=== PATIENT | male | born 1965 | race Caucasian/White ===

== ENCOUNTER 2018-08-03 11:07 | Emergency (ER) | payer MEDICAID, MEDICARE, OTHER ==
[2018-08-03 11:17] VITALS: BP 134/99
--- NOTE | 2018-08-03 11:51 | ED Physician Documentation ---
History of Present Illness - Stated complaint Stated Complaint: COLDS/COUGH - Chief complaint Chief Complaint: Resp - History obtained from History obtained from: Patient - Additonal information Additional information: Patient is a 53-year-old male with history of HIV presenting with nasal congestion, rhinorrhea, sore throat, productive cough, and mild shortness of breath over the past several weeks. Patient reports that he was at a walk-in clinic recently where they tested him for strep, which returned negative. Patient received medication for cough, although no antibiotics. Patient denies other symptoms such as nausea, vomiting, abdominal pain, urinary changes, or stool changes. Patient reports that he follows with the [facility] regarding his HIV status about every 6 months and his last CD4 counts and viral load were normal and otherwise undetectable. No other improving or worsening factors noted. Review of Systems Constitutional: denies: Fever Nose: reports: Rhinorrhea / runny nose, Congestion Throat: reports: Sore throat Respiratory: reports: Dyspnea, Cough GI: denies: Abdominal Pain, Vomiting, Diarrhea : denies: Dysuria PD PAST MEDICAL HISTORY - Past Medical History Past Medical History: Yes Other Past Medical History: HIV - Past Surgical History Past Surgical History: No - Present Medications Home Medications: Ambulatory Orders Medication Instructions Recorded Confirmed Doxycycline Hyclate 100 mg PO BID #14 capsule 08/03/18 - Allergies Allergies/Adverse Reactions: Allergies Allergy/AdvReac Type Severity Reaction Status Date / Time No Known Drug Allergies Allergy Verified 08/03/18 11:15 PD ED PE NORMAL - Vitals Vital signs reviewed: Yes - General General: Alert and oriented X 3, No acute distress, Well developed/nourished - HEENT HEENT: Atraumatic, Moist mucous membranes, Pharynx benign, Other (Maxillary sinus pressure) - Cardiac Cardiac: RRR, No murmur - Respiratory Respiratory: No respiratory distress, Clear bilaterally, Other (Dry cough) - Abdomen Abdomen: Soft, Non tender, Non distended - Derm Derm: Normal color, Warm and dry, No rash - Extremities Extremities: No deformity - Neuro Neuro: Alert and oriented X 3, No motor deficit, No sensory deficit - Psych Psych: Normal mood, Normal affect Results - Vitals Vitals: Vital Signs - 24 hr 08/03/18 11:14 Temperature 36.8 C Heart Rate 81 Respiratory 18 Rate Blood Pressure 134/99 H O2 Saturation 99 Oxygen O2 Source Room air PD MEDICAL DECISION MAKING - ED course Complexity details: reviewed results, re-evaluated patient, considered differential, d/w patient ED course: Most concerning for viral illness, URI, sinusitis, postnasal drip, pneumonia given patient's constellation of symptoms. Patient reports sore throat, but no changes to indicate tonsillitis, pharyngitis, uvulitis, peritonsillar abscess or other concerns on exam. Patient reports recent negative strep test. Patient also has mild pressure and tenderness to maxillary sinuses indicating possible sinusitis. Although pulmonary exam is relatively unremarkable, chest x-ray concerning for possible scarring versus pneumonia given clinical findings, as well as medical history, feel appropriate to treat as pneumonia. Do feel that doxycycline can be prescribed to address both sinusitis and pneumonia, particularly as patient is equivocal to an immunocompetent patient given his normal CD4 counts, per his report. Do not have high suspicion for PCP or other acute complication at this time. Additionally, patient has follow-up with his HIV specialist later this week. Feel he is safe to discharge home with antibiotics, strict return precautions and plan to continue follow-up as scheduled. Patient voiced understanding and is comfortable with discharge plan. Departure - Departure Disposition: 01 Home, Self Care Clinical Impression: Pneumonia Qualifiers: Pneumonia type: due to unspecified organism Laterality: bilateral Lung location: lower lobe of lung Qualified Code(s): J18.1 - Lobar pneumonia, unspecified organism Condition: Good Instructions: ED Pneumonia Adult, ED Sinusitis Abx Tx Follow-Up: Warren Islas MD [Primary Care Provider] - Within 3 Days Prescriptions: Doxycycline Hyclate 100 mg PO BID #14 capsule Comments: Please continue all home medications as previously instructed. Please take antibiotics as provided for likely pneumonia and sinus infection. Recommend taking antibiotics with small amount of food to avoid upset stomach. Please follow-up with your primary care physician as scheduled later this week. Return to ED sooner if you experience worsening symptoms or have other concerns.
--- NOTE | 2018-08-03 12:36 | XRAY Report ---
Reason: cough, HIV positive Procedure Date: 08/03/2018 Accession Number: [id number] / [id number] Procedure: XR - Chest 2 View X-Ray CPT Code: 26652 FULL RESULT: EXAM: CHEST RADIOGRAPHY EXAM DATE: 08/03/2018 12:29 PM. CLINICAL HISTORY: Cough, HIV positive. COMPARISON: None. TECHNIQUE: 2 views. FINDINGS: Lungs/Pleura: Linear bilateral lower lung opacities. No pneumothorax hyperinflation. No dense consolidation. Biapical parenchymal scarring and pleural thickening. Prominent nipple shadows bilaterally. Mediastinum: Heart size is normal. Aorta is mildly tortuous. Other: Degenerative changes of the thoracic spine. IMPRESSION: 1. Hyperinflation. 2. Linear bibasilar opacities favoring scarring. No dense consolidation. [facility]
== END 2018-08-03 13:22 | disposition home or self-care (01) ==
LOC: ED 11:07
DX: J18.1 Lobar pneumonia, unspecified organism (principal); Z21 Asymptomatic human immunodeficiency virus [HIV] infection status
CPT/HCPCS: 71046; 99283; 99284